=== PATIENT | female | born 1950 | race Caucasian/White ===

== ENCOUNTER 2020-09-02 10:40 | Outpatient (CLI) | payer MEDICARE, MEDICAID ==
[2020-09-02 12:48] LABS: BASOPHILS # (AUTO) 0.1 /CMM (0.0-0.2); BASOPHILS % (AUTO) 0.9 % (0.0-2.0); HEMATOCRIT 39 % (33-45); HEMOGLOBIN 13.1 g/dL (11.5-14.8); LYMPHOCYTES # (AUTO) 2.4 /CMM (0.8-4.8); LYMPHOCYTES % (AUTO) 28.1 % (20.0-44.0); MEAN CORPUSCULAR HGB CONC 34 g/dl (31.0-36.0); MEAN CORPUSCULAR VOLUME 100 fL (82-100); MONOCYTES # (AUTO) 0.3 /CMM (0.1-1.30); MONOCYTES % (AUTO) 3.5 % (2.0-12.0); NEUTROPHILS # (AUTO) 5.6 /CMM (1.8-8.9); NEUTROPHILS % (AUTO) 65.5 % (43.0-81.0); PLATELET COUNT (AUTO) 246 /CMM (150-450); RED BLOOD CELL COUNT(AUTO) 3.89 MIL/uL (4.0-5.2); WHITE BLOOD COUNT (AUTO) 8.5 K/uL (4.3-11.0)
[2020-09-02 13:13] LABS: URINE TOTAL PROTEIN 23.1 mg/dL (0-11.9)
[2020-09-02 13:24] LABS: CHOLESTEROL 403 mg/dL (<200); FREE T4 (FREE THYROXINE) 0.29 ng/dL (0.76-1.46); HDL CHOLESTEROL 36 mg/dL (40-60); LDL 203 mg/dL (0-99); THYROID STIMULATING HORMONE 85.722 uIU/mL (0.358-3.74); TRIGLYCERIDES 446 mg/dL (30-150)
[2020-09-02 13:25] LABS: C-REACTIVE PROTEIN < 0.3 mg/dL (0.0-0.9)
[2020-09-02 13:31] LABS: COLOR,URINE YELLOW (YELLOW)
[2020-09-02 13:32] LABS: BILIRUBIN,URINE NEGATIVE (NEGATIVE); NITRITE, URINE NEGATIVE (NEGATIVE); PROTEIN,URINE NEGATIVE (NEGATIVE); UGLUCOSE NEGATIVE (NEGATIVE); UROBILINOGEN,URINE 0.2 EU/dL (0.2)
[2020-09-02 13:33] LABS: LEUKOCYTE ESTERASE ,URINE TRACE (NEGATIVE)
[2020-09-02 13:37] LABS: RBC,URINE NONE SEEN /HPF (0-2)
[2020-09-02 13:39] LABS: BACTERIA,URINE Many /HPF (None Seen)
[2020-09-02 13:40] LABS: ALANINE AMINOTRANSFERASE 37 U/L (12-78); ALBUMIN 4.7 g/dL (3.4-5.0); ALKALINE PHOSPHATASE 87 U/L (46-116); ASPARTATE AMINOTRANSFERASE 62 U/L (15-37); BILIRUBIN,TOTAL 0.6 mg/dL (0.2-1.0); CALCIUM, SERUM 9.4 mg/dL (8.5-10.1); CARBON DIOXIDE 29 mmol/L (21-32); CHLORIDE 97 mmol/L (98-107); CREATININE 1.5 mg/dL (0.6-1.3); GLUCOSE 127 mg/dL (74-106); MAGNESIUM 2.4 mg/dL (1.8-2.4); PHOSPHORUS 4.4 mg/dL (2.5-4.9); SODIUM SERUM 137 mmol/L (136-145); SQUAMOUS EPITHELIAL CELL,UR Rare /HPF (None Seen); TOTAL PROTEIN, SERUM 8.8 g/dL (6.4-8.2); UREA NITROGEN, BLOOD 16 mg/dL (7-18)
[2020-09-03 08:07] LABS: *ANA ANTI-CENTROMERE B AB <0.2 AI (0.0-0.9); *ANA ANTI-DNA(DS) AB, QN 3 IU/mL (0-9); *ANA ANTI-JO-1 <0.2 AI (0.0-0.9); *ANA ANTICHROMATIN ANTIBODY <0.2 AI (0.0-0.9); *ANA RNP ANTIBODIES <0.2 AI (0.0-0.9); *ANA SJOGREN'S ANTI-SS-A <0.2 AI (0.0-0.9); *ANA SJOGREN'S ANTI-SS-B <0.2 AI (0.0-0.9); *ANAANTI-SCLERODERMA-70 AB <0.2 AI (0.0-0.9); *ANASMITH AB <0.2 AI (0.0-0.9)
== END 2020-09-02 23:59 | disposition home or self-care (01) ==
LOC: MSC 10:40
PROVIDERS: ATTEND Internal Medicine
DX: M79.89 Other specified soft tissue disorders (principal); M25.559 Pain in unspecified hip; Z87.81 Personal history of (healed) traumatic fracture; Z91.81 History of falling; R23.3 Spontaneous ecchymoses; I10 Essential (primary) hypertension; E03.9 Hypothyroidism, unspecified; B18.2 Chronic viral hepatitis C; F41.9 Anxiety disorder, unspecified; Z79.899 Other long term (current) drug therapy
CPT/HCPCS: 36415; 73502; 80053; 80061; 80074; 81001; 82043; 82570; 82607; 82746; 83036; 83735; 84100; 84155; 84439; 84443; 85025; 85652; 86140; 86225; 86235 ×8; 86431; 87086; G0463

== ENCOUNTER 2021-09-01 11:11 | Outpatient (CLI) | payer MEDICARE, MEDICAID ==
[2021-09-01 12:45] LABS: BASOPHILS # (AUTO) 0.1 K/uL (0.0-0.2); BASOPHILS % (AUTO) 0.8 % (0.0-2.0); EOSINOPHILS % (AUTO) 2.2 % (0.0-6.0); HEMATOCRIT 40 % (33-45); HEMOGLOBIN 13.5 g/dL (11.5-14.8); LYMPHOCYTES # (AUTO) 1.9 K/uL (0.8-4.8); LYMPHOCYTES % (AUTO) 26.1 % (20.0-44.0); MEAN CORPUSCULAR HGB CONC 34 g/dl (31.0-36.0); MEAN CORPUSCULAR VOLUME 101 fL (82-100); MONOCYTES # (AUTO) 0.3 K/uL (0.1-1.30); MONOCYTES % (AUTO) 4.3 % (2.0-12.0); NEUTROPHILS # (AUTO) 4.9 K/uL (1.8-8.9); NEUTROPHILS % (AUTO) 66.6 % (43.0-81.0); PLATELET COUNT (AUTO) 217 K/uL (150-450); RED BLOOD CELL COUNT(AUTO) 3.93 MIL/uL (4.0-5.2); WHITE BLOOD COUNT (AUTO) 7.3 K/uL (4.3-11.0)
[2021-09-01 13:47] LABS: C-REACTIVE PROTEIN 0.6 mg/dL (0.0-0.9); THYROID STIMULATING HORMONE 68.403 uIU/mL (0.358-3.74)
[2021-09-01 13:57] LABS: ALBUMIN 4.2 g/dL (3.4-5.0); BILIRUBIN,TOTAL 0.7 mg/dL (0.2-1.0); CALCIUM, SERUM 8.8 mg/dL (8.5-10.1); CREATININE 1.2 mg/dL (0.6-1.3); MAGNESIUM 2.5 mg/dL (1.8-2.4); PHOSPHORUS 3.4 mg/dL (2.5-4.9); TOTAL PROTEIN, SERUM 8.5 g/dL (6.4-8.2)
[2021-09-01 14:47] LABS: BILIRUBIN,URINE NEGATIVE (NEGATIVE); COLOR,URINE YELLOW (YELLOW); LEUKOCYTE ESTERASE ,URINE NEGATIVE (NEGATIVE); NITRITE, URINE NEGATIVE (NEGATIVE); PROTEIN,URINE NEGATIVE (NEGATIVE); UGLUCOSE NEGATIVE (NEGATIVE); UROBILINOGEN,URINE 0.2 EU/dL (0.2)
[2021-09-02 09:04] LABS: CREATININE, URINE 118.2 MG/DL (30.0-125.0); URINE TOTAL PROTEIN 25.4 mg/dL (0-11.9)
[2021-09-05 20:06] LABS: CCP IgG/IgA AB 5 units (0-19)
== END 2021-09-01 23:59 | disposition home or self-care (01) ==
LOC: MSC 11:11
PROVIDERS: ATTEND Internal Medicine
DX: M25.551 Pain in right hip (principal); M25.552 Pain in left hip; Z87.81 Personal history of (healed) traumatic fracture; Z91.81 History of falling; G89.4 Chronic pain syndrome; Z79.891 Long term (current) use of opiate analgesic; R60.0 Localized edema; I10 Essential (primary) hypertension; M79.89 Other specified soft tissue disorders; R23.3 Spontaneous ecchymoses; E03.9 Hypothyroidism, unspecified; B18.2 Chronic viral hepatitis C; F41.9 Anxiety disorder, unspecified; M54.2 Cervicalgia; Z79.899 Other long term (current) drug therapy
CPT/HCPCS: 36415; 73521; 80053; 80061; 81003; 82570; 82607; 82746; 83036; 83735; 84100; 84145; 84155; 84439; 84443; 85025; 85652; 86038; 86140; 86200; 86431; G0463; 82040-TC

== ENCOUNTER 2021-09-13 09:30 | Outpatient (CLI) | payer MEDICARE, OTHER | END 2021-09-13 23:59 | disposition home or self-care (01) | LOC: MSC 09:30 | PROVIDERS: ATTEND Internal Medicine | DX: S72.91XD Unspecified fracture of right femur, subsequent encounter for closed fracture with routine healing (principal); S32.501D Unspecified fracture of right pubis, subsequent encounter for fracture with routine healing; Z98.890 Other specified postprocedural states; N76.0 Acute vaginitis; E03.9 Hypothyroidism, unspecified; E11.9 Type 2 diabetes mellitus without complications; E78.1 Pure hyperglyceridemia; R60.0 Localized edema; I10 Essential (primary) hypertension; G89.4 Chronic pain syndrome; Z79.891 Long term (current) use of opiate analgesic; M79.89 Other specified soft tissue disorders; R23.3 Spontaneous ecchymoses; B18.2 Chronic viral hepatitis C; F41.9 Anxiety disorder, unspecified; M54.2 Cervicalgia ==

== ENCOUNTER 2021-09-16 16:22 | Emergency (ER) | payer MEDICARE, OTHER ==
[~2021-09-16] VITALS: Ht 157.5 cm; Wt 54.4 kg
--- NOTE | 2021-09-16 16:40 | NUR ---
to er bed 9. bib family w/ multiple complains, "heart palpitation" R hip pain denies any recent trauma. hip surggery 4 months ago
[2021-09-16] MEDS ORDERED: LOSA100T31 PO (16:44)
[2021-09-16] MEDS ORDERED: LEVO175T7 PO (16:44)
[2021-09-16] MEDS ORDERED: HYDR25TA4 PO (16:44)
--- NOTE | 2021-09-16 16:55 | NUR ---
iv arsalan terry hand 20g. lab drawn and collected at bedside.
--- NOTE | 2021-09-16 17:12 | NUR ---
x ray at bedside
[2021-09-16 17:41] LABS: BASOPHILS % (AUTO) 0.5 % (0.0-2.0); EOSINOPHILS % (AUTO) 1.4 % (0.0-6.0); HEMATOCRIT 41 % (33-45); HEMOGLOBIN 14.2 g/dL (11.5-14.8); LYMPHOCYTES # (AUTO) 3.2 K/uL (0.8-4.8); MEAN CORPUSCULAR HGB CONC 34 g/dl (31.0-36.0); MEAN CORPUSCULAR VOLUME 100 fL (82-100); MONOCYTES # (AUTO) 0.5 K/uL (0.1-1.30); MONOCYTES % (AUTO) 5.5 % (2.0-12.0); NEUTROPHILS # (AUTO) 5.8 K/uL (1.8-8.9); NEUTROPHILS % (AUTO) 59.6 % (43.0-81.0); PLATELET COUNT (AUTO) 314 K/uL (150-450); RED BLOOD CELL COUNT(AUTO) 4.12 MIL/uL (4.0-5.2); WHITE BLOOD COUNT (AUTO) 9.7 K/uL (4.3-11.0)
[2021-09-16 18:08] LABS: ALANINE AMINOTRANSFERASE 45 U/L (12-78); ALBUMIN 4.6 g/dL (3.4-5.0); ALKALINE PHOSPHATASE 151 U/L (46-116); ASPARTATE AMINOTRANSFERASE 69 U/L (15-37); BILIRUBIN,DIRECT 0.1 mg/dL (0.0-0.2); BILIRUBIN,TOTAL 1.1 mg/dL (0.2-1.0); CALCIUM, SERUM 8.8 mg/dL (8.5-10.1); CARBON DIOXIDE 29 mmol/L (21-32); CHLORIDE 98 mmol/L (98-107); CREATININE 1.2 mg/dL (0.6-1.3); GLUCOSE 89 mg/dL (74-106); POTASSIUM 3.5 mmol/L (3.5-5.1); SODIUM SERUM 135 mmol/L (136-145); TOTAL PROTEIN, SERUM 9.3 g/dL (6.4-8.2); UREA NITROGEN, BLOOD 15 mg/dL (7-18)
[2021-09-16] MEDS ORDERED: LORA-259 PO (18:25)
--- NOTE | 2021-09-16 19:43 | NUR ---
Patient discharged to home in stable condition with son. Written and verbal after care instructions given. Patient verbalizes understanding of instruction. Pt D/C via W/C
[2021-09-16 19:44] VITALS: BP 176/91
== END 2021-09-16 19:45 | disposition home or self-care (01) ==
LOC: ER 16:52
DX: R00.2 Palpitations (principal); I10 Essential (primary) hypertension; F17.200 Nicotine dependence, unspecified, uncomplicated; Z88.2 Allergy status to sulfonamides; Z79.899 Other long term (current) drug therapy
CPT/HCPCS: 36415; 71045; 72170; 80048; 80076; 84484; 85025; 93005; 99285; A6407

== ENCOUNTER → 2021-09-20 | Outpatient (CLI) | payer MEDICARE, OTHER ==
[~2021-09-20] MED LIST: HYDR25TA4 PO; LEVO175T7 PO; LORA-259 PO; LOSA100T31 PO
== END | disposition home or self-care (01) ==
LOC: MSC 10:00
PROVIDERS: ATTEND Internal Medicine
DX: R60.0 Localized edema (principal); Z87.81 Personal history of (healed) traumatic fracture; Z98.890 Other specified postprocedural states; Z91.81 History of falling; E03.9 Hypothyroidism, unspecified; Z79.890 Hormone replacement therapy; E11.9 Type 2 diabetes mellitus without complications; E78.1 Pure hyperglyceridemia; I10 Essential (primary) hypertension; G89.4 Chronic pain syndrome; Z79.891 Long term (current) use of opiate analgesic; M54.2 Cervicalgia; M79.89 Other specified soft tissue disorders; R23.3 Spontaneous ecchymoses; B18.2 Chronic viral hepatitis C; F41.9 Anxiety disorder, unspecified

== ENCOUNTER → 2021-10-24 | Outpatient (CLI) | payer MEDICARE, OTHER | END | disposition home or self-care (01) | LOC: MSC 15:00 | PROVIDERS: ATTEND Internal Medicine | DX: F41.9 Anxiety disorder, unspecified (principal); Z91.81 History of falling; Z87.81 Personal history of (healed) traumatic fracture; Z98.890 Other specified postprocedural states; R60.0 Localized edema; E03.9 Hypothyroidism, unspecified; Z79.890 Hormone replacement therapy; E11.9 Type 2 diabetes mellitus without complications; Z79.84 Long term (current) use of oral hypoglycemic drugs; E78.1 Pure hyperglyceridemia; I10 Essential (primary) hypertension; G89.4 Chronic pain syndrome; Z79.891 Long term (current) use of opiate analgesic; M54.2 Cervicalgia; M79.89 Other specified soft tissue disorders; R23.3 Spontaneous ecchymoses; B18.2 Chronic viral hepatitis C; Z79.899 Other long term (current) drug therapy ==

== ENCOUNTER → 2021-12-27 | Outpatient (CLI) | payer MEDICARE, OTHER | END | disposition home or self-care (01) | LOC: MSC 09:30 | PROVIDERS: ATTEND Internal Medicine | DX: F41.9 Anxiety disorder, unspecified (principal); R60.0 Localized edema; E03.9 Hypothyroidism, unspecified; Z79.890 Hormone replacement therapy; E11.9 Type 2 diabetes mellitus without complications; Z79.84 Long term (current) use of oral hypoglycemic drugs; E78.1 Pure hyperglyceridemia; I10 Essential (primary) hypertension; G89.4 Chronic pain syndrome; Z79.891 Long term (current) use of opiate analgesic; M54.2 Cervicalgia; M79.89 Other specified soft tissue disorders; R23.3 Spontaneous ecchymoses; B18.2 Chronic viral hepatitis C; Z91.81 History of falling; Z87.81 Personal history of (healed) traumatic fracture; Z79.899 Other long term (current) drug therapy ==

== ENCOUNTER → 2021-12-30 | Outpatient (CLI) | payer MEDICARE, OTHER | END | disposition home or self-care (01) | LOC: MSC 14:00 | PROVIDERS: ATTEND Internal Medicine | DX: F41.9 Anxiety disorder, unspecified (principal); J44.1 Chronic obstructive pulmonary disease with (acute) exacerbation; Z72.0 Tobacco use; Z99.81 Dependence on supplemental oxygen; R60.0 Localized edema; E03.9 Hypothyroidism, unspecified; Z79.890 Hormone replacement therapy; E11.9 Type 2 diabetes mellitus without complications; Z79.84 Long term (current) use of oral hypoglycemic drugs; E78.1 Pure hyperglyceridemia; I10 Essential (primary) hypertension; G89.4 Chronic pain syndrome; Z79.891 Long term (current) use of opiate analgesic; M54.2 Cervicalgia; R23.3 Spontaneous ecchymoses; B18.2 Chronic viral hepatitis C; Z91.81 History of falling; Z87.81 Personal history of (healed) traumatic fracture; Z79.899 Other long term (current) drug therapy ==